=== PATIENT | male | born 1950 | race Caucasian/White ===

== ENCOUNTER 2020-12-12 12:09 | Emergency (ER) | payer OTHER, SELFPAY ==
[2020-12-12 12:47] LABS: BASOPHIL 1.1 % (0-2); EOSINOPHIL 2.9 % (0-7); HCT 26.8 % (42.0-52.0); HGB 8.5 g/dl (13.2-18.0); LYMPHOCYTE 13.7 % (15-48); MCH 36.3 pg (25.0-31.0); MCHC 31.7 g/dL (32.0-36.0); MCV 114.5 fL (78.0-100.0); MONOCYTE 10.7 % (0-12); MPV 10.7 fL (6.0-9.5); NEUTROPHIL 71.2 % (41-80); NRBC 0; PLT 179 K/uL (150-400); RBC 2.34 M/uL (4.70-6.00); RDW 17.4 % (11.5-14.0); WBC 10.2 K/uL (4.0-10.5)
[2020-12-12 13:06] LABS: ALBUMIN 3.5 g/dL (3.4-5.0); BUN/CREAT RATIO (CALC) 18.1 RATIO; CREATININE 1.38 mg/dL (0.67-1.17); GLOBULIN (CALCULATION) 3.4 g/dL; POTASSIUM 3.5 mmol/L (3.5-5.1); TOTAL PROTEIN 6.9 g/dL (6.4-8.2)
[2020-12-12] MEDS ORDERED: PROTONIX 40MG T40 MG PO (14:51)
== END 2020-12-12 16:01 | disposition home or self-care (01) ==
LOC: FER 12:09
PROVIDERS: Emergency Medicine
DX: D50.0 Iron deficiency anemia secondary to blood loss (chronic) (principal); Z95.810 Presence of automatic (implantable) cardiac defibrillator; Z87.891 Personal history of nicotine dependence; Z95.1 Presence of aortocoronary bypass graft
CPT/HCPCS: 36415; 71045; 80053; 84484; 85025; 93005; J7030

== ENCOUNTER 2020-12-26 11:56 | Emergency (ER) | payer OTHER ==
[~2020-12-26 11:56] MED LIST: PROTONIX 40MG T40 MG PO
[2020-12-26 12:33] LABS: BASOPHIL 1.3 % (0-2); EOSINOPHIL 2.4 % (0-7); HCT 30.4 % (42.0-52.0); HGB 9.4 g/dl (13.2-18.0); LYMPHOCYTE 13.6 % (15-48); MCH 36.4 pg (25.0-31.0); MCHC 30.9 g/dL (32.0-36.0); MCV 117.8 fL (78.0-100.0); MONOCYTE 12.4 % (0-12); MPV 10.4 fL (6.0-9.5); NEUTROPHIL 70.1 % (41-80); NRBC 0; PLT 202 K/uL (150-400); RBC 2.58 M/uL (4.70-6.00); RDW 16.7 % (11.5-14.0); WBC 8.3 K/uL (4.0-10.5)
[2020-12-26 12:45] LABS: ALBUMIN 3.4 g/dL (3.4-5.0); BUN/CREAT RATIO (CALC) 18.6 RATIO; CREATININE 1.18 mg/dL (0.67-1.17); GLOBULIN (CALCULATION) 3.7 g/dL; POTASSIUM 2.9 mmol/L (3.5-5.1); TOTAL PROTEIN 7.1 g/dL (6.4-8.2)
[2020-12-26 12:50] LABS: INR 1.26 (0.9-1.2); PTT 31.4 SECONDS (22.2-34.7)
[2020-12-26 14:20] LABS: BILIRUBIN NEGATIVE (NEGATIVE); BLOOD NEGATIVE Ery/uL (NEGATIVE); CLARITY CLEAR (CLEAR); COLOR YELLOW (YELLOW); GLUCOSE (U) NORMAL (NORMAL); LEUKOCYTES NEGATIVE Leu/uL (NEGATIVE); NITRITE NEGATIVE (NEGATIVE); PROTEIN NEGATIVE (NEGATIVE); pH 6.5 (5.0-9.0)
[2020-12-26] MEDS ORDERED: KLOR-CON M2020 MEQ PO (18:25)
== END 2020-12-26 18:42 | disposition home or self-care (01) ==
LOC: FER 11:56
PROVIDERS: Internal Medicine
DX: I50.9 Heart failure, unspecified (principal); E87.6 Hypokalemia; R42 Dizziness and giddiness; Z95.0 Presence of cardiac pacemaker; Z79.899 Other long term (current) drug therapy
CPT/HCPCS: 36415; 71045; 80053; 81003; 83605; 83880; 84484; 85025; 85610; 85730; 93005; J1940

== ENCOUNTER 2021-04-03 16:36 | Emergency (ER) | payer OTHER ==
[~2021-04-03 16:36] MED LIST changes: +KLOR-CON M2020 MEQ PO
[2021-04-03 19:25] LABS: INR 1.29 (0.9-1.2); PROTHROMBIN TIME 15.4 SECONDS (11.8-13.4)
[2021-04-03 19:27] LABS: BASOPHIL 1.8 % (0-2); EOSINOPHIL 3.6 % (0-7); HCT 31.3 % (42.0-52.0); HGB 9.2 g/dl (13.2-18.0); LYMPHOCYTE 10.9 % (15-48); MCH 31.9 pg (25.0-31.0); MCHC 29.4 g/dL (32.0-36.0); MCV 108.7 fL (78.0-100.0); MONOCYTE 14.3 % (0-12); MPV 10.2 fL (6.0-9.5); NEUTROPHIL 68.7 % (41-80); NRBC 0.2; PLT 311 K/uL (150-400); RBC 2.88 M/uL (4.70-6.00); RDW 18.6 % (11.5-14.0); WBC 9.6 K/uL (4.0-10.5)
[2021-04-03 19:33] LABS: ALBUMIN 3.1 g/dL (3.4-5.0); BILIRUBIN - TOTAL 0.8 mg/dL (0.2-1.0); BUN/CREAT RATIO (CALC) 23.2 RATIO; CREATININE 2.54 mg/dL (0.67-1.17); TOTAL PROTEIN 7.1 g/dL (6.4-8.2)
[2021-04-03 19:36] LABS: PRO-BNP 13851 pg/mL (<125)
[2021-04-03 21:48] LABS: BILIRUBIN NEGATIVE (NEGATIVE); BLOOD NEGATIVE Ery/uL (NEGATIVE); CLARITY CLEAR (CLEAR); COLOR YELLOW (YELLOW); GLUCOSE (U) NORMAL (NORMAL); LEUKOCYTES NEGATIVE Leu/uL (NEGATIVE); NITRITE NEGATIVE (NEGATIVE); PROTEIN NEGATIVE (NEGATIVE); pH 7.5 (5.0-9.0)
[2021-04-03 21:53] LABS: BACTERIA 3+; SQUAMOUS EPITHELIAL CELLS RARE; URINARY WBC RARE
== END 2021-04-04 02:30 | disposition other institution (70) ==
LOC: FER 16:36
PROVIDERS: Physician Assistant
DX: I11.0 Hypertensive heart disease with heart failure (principal); I50.23 Acute on chronic systolic (congestive) heart failure; N17.9 Acute kidney failure, unspecified; I95.9 Hypotension, unspecified; R09.02 Hypoxemia; I48.91 Unspecified atrial fibrillation; Z79.82 Long term (current) use of aspirin; Z79.02 Long term (current) use of antithrombotics/antiplatelets; Z95.0 Presence of cardiac pacemaker; Z95.5 Presence of coronary angioplasty implant and graft; Z20.822 Contact with and (suspected) exposure to COVID-19
CPT/HCPCS: 36415; 36600; 71045; 80053; 81001; 82803; 83880; 84484; 85025; 85610; 93005; 96374; 96375; 96376; J0692; J1265; J7030; U0002